=== PATIENT | male | born 1950 | race American Indian/Alaskan Native ===

== ENCOUNTER 2017-11-03 12:58 | Outpatient (CLI) | payer MEDICARE ==
--- NOTE | 2017-11-04 08:26 | XRay Report ---
FINAL REPORT EXAM: XR CHEST ROUTINE 2V HISTORY: BMI 31.0 - 31.9 TECHNIQUE: 2 views of the chest. PRIORS: None. FINDINGS: The cardiomediastinal silhouette appears normal. The lungs are clear. The bones and soft tissues are unremarkable. IMPRESSION: No evidence of acute cardiopulmonary disease
== END 2017-11-03 12:59 | disposition home or self-care (01) ==
LOC: SPVIMAG 12:58
PROVIDERS: ATTEND Internal Medicine
DX: Z68.31 Body mass index [BMI] 31.0-31.9, adult (principal)
CPT/HCPCS: 71046